=== PATIENT | male | born 1995 ===

== ENCOUNTER 2025-03-29 08:46 | Inpatient (IN) | payer MEDICAID, SELFPAY ==
[2025-03-29 08:56] VITALS: BP 128/90; PULSE 95; O2SAT 99
[2025-03-29 08:57] VITALS: BP 120/88; PULSE 96; RESP 18; TEMP 36.6; O2SAT 98; BMI 30.3
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
[2025-03-29 10:01] LABS: Alanine Aminotransferase 46 U/L (0-40); Albumin Level 5.1 g/dL (3.5-5.0); Alkaline Phosphatase 86 U/L (39-117); Anion Gap 17 (12-20); Aspartate Amino Transferase 38 U/L (5-37); Blood Urea Nitrogen 12 mg/dL (9-16); Calcium 9.2 mg/dL (8.4-10.2); Carbon Dioxide 22 mmol/L (22-29); Chloride 109 mmol/L (96-108); Creatinine Clr Calc Pharmacy 130.1; Estimated Glomerular Filt Rate > 60; Potassium 3.8 mmol/L (3.3-5.1); Sodium 144 mmol/L (135-145); Total Protein 8.1 g/dL (6.5-8.0)
[2025-03-29 10:19] LABS: Resp Syncy Virus RNA Qual PCR NEGATIVE (Negative); SARS COV2 PCR INHOUSE NEGATIVE (Negative)
[2025-03-29 10:27] LABS: Hematocrit 47.8 % (42.0-52.0); Hemoglobin 15.9 g/dl (14.0-18.0); Mean Corpuscular HGB Conc 33.3 g/dl (31.0-36.0); Mean Corpuscular Hemoglobin 28.6 pg (27.0-33.0); Mean Corpuscular Volume 86.1 fL (80.0-98.0); Platelet Count 206 X10*3/uL (160-400); Red Blood Count 5.55 X10*6/uL (4.60-5.80); White Blood Count 6.6 X10*3/uL (4.8-10.8)
[2025-03-29 10:28] LABS: Lymphocytes Absolute Auto 1.1 X10*3/uL (1.2-4.9); MANUAL DIFF FLAG NO; NRBC Abs Auto 0.000 X10*3/uL (0.0-0.012); NRBC Pct Auto 0.0 /100WBC (0.0-0.2)
[2025-03-29] MEDS: Diphth,Pertus(ACell),Tet Adult 0.5 ML SYRINGE IM (10:30)
[2025-03-29 10:40] LABS: Imm Gran Abs Auto 0.02 X10*3/uL (0.00-0.03); Imm Gran Pct Auto 0.3 % (0.0-0.4)
[2025-03-29 11:59] LABS: Appearance Urine Clear; Glucose Urine UA Negative (Negative); PH 5.5 (5.0-9.0); Specific Gravity - Urine 1.015 (1.005-1.025); UMIC TRIGGER UACC YES
[2025-03-29 12:46] LABS: Cannabinoid Screen Urine Not Detected (Not Detect)
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
[2025-03-29 20:26] VITALS: BP 125/75; PULSE 90; RESP 18; O2SAT 96
--- NOTE | 2025-03-29 22:33 | PC.NURSE ---
Pt has spent the shift, standing in the milu and on the phone. He has remained calm and cooperative. He has had little exit seeking behavior. He has been re-educated about the plans for admission.
[2025-03-30 05:15] VITALS: BP 112/68; PULSE 77; RESP 16; TEMP 37.2; O2SAT 98
--- NOTE | 2025-03-30 07:33 | PC.NURSE ---
Assumed care, report received. Pt has been pacing all morning, he is Vietnamese speaking only, He talks with a peer on the unit. He attempts to make phone calls but it seems nobody answers his calls. Pt has not slept all night per report, he appears tired and told a peer his is worried about his job.
--- NOTE | 2025-03-30 11:37 | PHA.MEDREC ---
Addendum entered by Vianey Sawyer RPh 03/30/25 11:43: Reviewed by [facility] Original Note: Pharmacy Consult ? Medication Reconciliation Pharmacy reviewed med rec done by nursing. No Known Home Meds confirmed; claims match.
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
--- NOTE | 2025-03-30 12:38 | PC.NURSE ---
Pt is refusing the EKG.
[2025-03-30 14:58] VITALS: BMI 29.5
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
[2025-03-30 20:00] VITALS: BP 107/68; PULSE 94; RESP 16; TEMP 36.8; O2SAT 96
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
[2025-03-30] MEDS: Flu Vacc TS2025-26(6mo up)/PF 0.5 ML SYRINGE IM (20:11)
[2025-03-31 07:45] VITALS: BP 119/73; PULSE 74; RESP 16; TEMP 36.3; O2SAT 98
[2025-03-31 08:14] LABS: Alanine Aminotransferase 40 U/L (0-40); Albumin Level 4.9 g/dL (3.5-5.0); Alkaline Phosphatase 84 U/L (39-117); Anion Gap 12 (12-20); Aspartate Amino Transferase 41 U/L (5-37); Blood Urea Nitrogen 15 mg/dL (9-16); Calcium 9.8 mg/dL (8.4-10.2); Carbon Dioxide 26 mmol/L (22-29); Chloride 107 mmol/L (96-108); Cholesterol 168 mg/dL (<200); Creatinine Clr Calc Pharmacy 119.6; Estimated Glomerular Filt Rate > 60; HDL Cholesterol 45 mg/dL (>40); Magnesium 2.4 mg/dL (1.6-2.6); Potassium 4.0 mmol/L (3.3-5.1); Sodium 141 mmol/L (135-145); Total Protein 7.8 g/dL (6.5-8.0); Triglycerides 82 mg/dL (<150)
[2025-03-31 08:31] LABS: Free T4 (Free Thyroxine) 0.95 ng/dL (0.71-1.85); Thyroid Stimulating Hormone 0.45 uIU/mL (0.32-4.0)
[2025-03-31 08:46] LABS: Folate 7.3 ng/mL (> or = 4.0); Vitamin B12 269 pg/mL (200-900)
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
--- NOTE | 2025-03-31 13:17 | PC.NURSE ---
Met with patient with jig box operator Josue for discharge review. Reports he is ready for discharge, reports friend is waiting for him in ED. Reports mood is stable, denies depression or sadness. Denies anxiety. Denies SI/HI at this time. Denies perceptual disturbances, denies A/V hallucinations. Denies any sx of alcohol withdrawal. Discharge paperwork reviewed with patient reports understanding. Information for mental health walk in clinic provided to patient reports understanding. Information to obtain PCP through [facility] given to patient reports understanding. Verbal information provided to patient regarding medical walk in clinic. Crisis numbers provided to patient. Resource book provided to patient. Reports understanding. Medications obtained from hospital pharmacy and given to patient with instructions. All belongings taken with patient.
== END 2025-03-31 13:00 | disposition home or self-care (01) | DRG 897 ==
LOC: HO.ED 03-30 08:19 → HO.PADLT16 03-30 13:38
PROVIDERS: Registered Nurse Emergency; Admitting Provider Nurse Practitioner Psychiatric/Mental Health; Emergency Provider Emergency Medicine; Visit Provider Psychiatry & Neurology Psychiatry
DX: F10.94 Alcohol use, unspecified with alcohol-induced mood disorder (principal); R45.851 Suicidal ideations; Y90.7 Blood alcohol level of 200-239 mg/100 ml; R45.850 Homicidal ideations; Z23 Encounter for immunization; F10.929 Alcohol use, unspecified with intoxication, unspecified; Z65.3 Problems related to other legal circumstances; Z20.822 Contact with and (suspected) exposure to COVID-19; Z79.899 Other long term (current) drug therapy
CPT/HCPCS: 36415; 80053; 80061; 80307; 81001; 82607; 82746; 83036; 83735; 84439; 84443; 85025; 87637; 90656; 90715; 99285; S9485